=== PATIENT | female | born 1950 | race Caucasian/White ===

== ENCOUNTER → 2018-08-18 16:21 | Outpatient (CLI) | payer MEDICARE, OTHER, SELFPAY ==
[2016-02-21 12:16] VITALS: BMI 27.4
== END ==
PROVIDERS: Family Provider Student in an Organized Health Care Education/Training Program; PCP Student in an Organized Health Care Education/Training Program; Referring Provider Otolaryngology Otolaryngology/Facial Plastic Surgery; Visit Provider Otolaryngology Otolaryngology/Facial Plastic Surgery
DX: J03.90 Acute tonsillitis, unspecified (principal)
CPT/HCPCS: 87070